=== PATIENT | male | born 1950 | race Caucasian/White ===

== ENCOUNTER 2018-10-24 11:24 | Outpatient (REF) | payer BC, SELFPAY ==
[2018-10-24 20:55] LABS: Hemoglobin A1C 6.7 % (4.5-6.2)
[2018-10-24 20:58] LABS: ALT 42 U/L (12-78); AST 20 U/L (15-37); Albumin 3.6 g/dL (3.4-5.0); Alkaline Phosphatase 79 U/L (46-116); Anion Gap 9.3 mmol/L (3-11); BUN 21 mg/dL (7-18); Bilirubin, Total 0.4 mg/dL (0.2-1.0); CO2 29.7 mmol/L (21.0-32.0); CREATININE 1.26 mg/dL (0.70-1.30); Calcium 8.8 mg/dL (8.5-10.1); Chloride 101 mmol/L (98-107); Estimated GFR 56.74 (mL/min/1.73m2); Glucose 115 mg/dL (70-100); Potassium 4.7 mmol/L (3.5-5.1); Sodium 140 mmol/L (136-145); TSH (W/Ref FT4) 2.79 uIU/mL (0.358-3.74); Total Protein 6.6 g/dL (6.4-8.2)
[2018-10-27 11:13] LABS: PSA, Screening 3.8 ng/ml (0-4.5)
== END 2018-10-24 11:44 ==
LOC: NCHCN 11:24
PROVIDERS: PCP Family Medicine; Visit Provider Family Medicine
DX: Z00.00 Encounter for general adult medical examination without abnormal findings (principal); E11.9 Type 2 diabetes mellitus without complications; E03.9 Hypothyroidism, unspecified; I10 Essential (primary) hypertension; E78.5 Hyperlipidemia, unspecified; Z12.5 Encounter for screening for malignant neoplasm of prostate
CPT/HCPCS: 80053; 84153; 83036; 84443

== ENCOUNTER 2019-10-27 09:42 | Outpatient (REF) | payer BC, SELFPAY ==
[2019-10-27 19:42] LABS: ALT 42 U/L (16-63); AST 24 U/L (15-37); Albumin 3.8 g/dL (3.4-5.0); Alkaline Phosphatase 68 U/L (46-116); Anion Gap 8.1 mmol/L (3-11); BUN 20 mg/dL (7-18); Bilirubin, Total 0.7 mg/dL (0.2-1.0); CO2 29.9 mmol/L (21.0-32.0); CREATININE 1.25 mg/dL (0.70-1.30); Calcium 9.1 mg/dL (8.5-10.1); Chloride 101 mmol/L (98-107); Glucose 129 mg/dL (74-106); Potassium 4.8 mmol/L (3.5-5.1); Sodium 139 mmol/L (136-145); TSH 2.59 uIU/mL (0.36-3.74); Total Protein 6.8 g/dL (6.4-8.2)
[2019-10-27 19:44] LABS: Hemoglobin A1C 6.5 % (3.8-5.6)
== END 2019-10-27 10:02 ==
LOC: NCHCN 09:42
PROVIDERS: PCP Family Medicine; Visit Provider Family Medicine
DX: E11.9 Type 2 diabetes mellitus without complications (principal); E03.9 Hypothyroidism, unspecified
CPT/HCPCS: 80053; 83036; 84443

== ENCOUNTER 2020-10-27 09:01 | Outpatient (REF) | payer BC, MEDICARE, SELFPAY ==
[2020-10-27 16:10] LABS: ALT 39 U/L (16-63); AST 18 U/L (15-37); Albumin 3.9 g/dL (3.4-5.0); Alkaline Phosphatase 74 U/L (46-116); Anion Gap 7.6 mmol/L (3-11); BUN 25 mg/dL (7-18); Bilirubin, Total 0.6 mg/dL (0.2-1.0); CO2 30.4 mmol/L (21.0-32.0); CREATININE 1.3 mg/dL (0.70-1.30); Chloride 103 mmol/L (98-107); Estimated GFR 54.42 (mL/min/1.73m2); Glucose 122 mg/dL (74-106); Potassium 4.9 mmol/L (3.5-5.1); Sodium 141 mmol/L (136-145); TSH (W/Ref FT4) 3.24 uIU/mL (0.36-3.74); Total Protein 6.9 g/dL (6.4-8.2)
[2020-10-27 21:54] LABS: PSA, Screening 5.7 ng/mL (0.0-6.5)
[2020-10-28 15:35] LABS: T4 8.6 ug/mL (4.7-13.3)
== END 2020-10-27 09:02 | disposition home or self-care (01) ==
LOC: NCHCN 09:01
PROVIDERS: PCP Family Medicine; Visit Provider Family Medicine
DX: Z00.00 Encounter for general adult medical examination without abnormal findings (principal); E03.9 Hypothyroidism, unspecified; E11.9 Type 2 diabetes mellitus without complications; I10 Essential (primary) hypertension; E78.5 Hyperlipidemia, unspecified; Z12.5 Encounter for screening for malignant neoplasm of prostate
CPT/HCPCS: 80053; 84153; 84436; 84443

== ENCOUNTER 2021-11-07 15:10 | Outpatient (REF) | payer MEDICARE, BC, SELFPAY ==
[2021-11-07 18:35] LABS: ALT 36 U/L (16-63); AST 19 U/L (15-37); Albumin 3.6 g/dL (3.4-5.0); Alkaline Phosphatase 82 U/L (46-116); Anion Gap 10.3 mmol/L (3-11); BUN 22 mg/dL (7-18); Bilirubin, Total 0.6 mg/dL (0.2-1.0); CO2 27.7 mmol/L (21.0-32.0); CREATININE 1.2 mg/dL (0.70-1.30); Calcium 8.6 mg/dL (8.5-10.1); Calculated LDL 75 mg/dL (<100); Chloride 104 mmol/L (98-107); Cholesterol 142 mg/dL (<200); Estimated GFR 59.51 (mL/min/1.73m2); Glucose 117 mg/dL (74-106); HDL Cholesterol 44 mg/dL (40-60); Potassium 4.7 mmol/L (3.5-5.1); Sodium 142 mmol/L (136-145); TSH (W/Ref FT4) 1.76 uIU/mL (0.36-3.74); Total Protein 6.3 g/dL (6.4-8.2); Triglyceride 117 mg/dL (<150)
[2021-11-07 19:10] LABS: Hemoglobin A1C 6.6 % (<5.7)
[2021-11-08 18:20] LABS: PSA, Screening 6.1 ng/mL (<=6.5)
== END 2021-11-07 15:11 | disposition home or self-care (01) ==
LOC: NCHCN 15:10
PROVIDERS: PCP Family Medicine; Visit Provider Family Medicine
DX: E11.9 Type 2 diabetes mellitus without complications (principal); E03.9 Hypothyroidism, unspecified; I10 Essential (primary) hypertension; E78.5 Hyperlipidemia, unspecified; N40.0 Benign prostatic hyperplasia without lower urinary tract symptoms; Z12.5 Encounter for screening for malignant neoplasm of prostate
CPT/HCPCS: 80053; 80061; 84153; 83036; 84443

== ENCOUNTER 2022-11-08 12:45 | Outpatient (REF) | payer MEDICARE, BC, SELFPAY ==
[2022-11-08 15:27] LABS: Hemoglobin A1C 6.4 % (<5.7)
[2022-11-08 15:55] LABS: ALT 46 U/L (16-63); AST 28 U/L (15-37); Albumin 3.6 g/dL (3.4-5.0); Alkaline Phosphatase 67 U/L (46-116); Anion Gap 6.2 mmol/L (3-11); BUN 21 mg/dL (7-18); Bilirubin, Total 0.5 mg/dL (0.2-1.0); CO2 30.8 mmol/L (21.0-32.0); CREATININE 1.3 mg/dL (0.70-1.30); Calcium 9.1 mg/dL (8.5-10.1); Chloride 104 mmol/L (98-107); Estimated GFR 58.01 (mL/min/1.73m2); Glucose 134 mg/dL (74-106); Potassium 4.6 mmol/L (3.5-5.1); Sodium 141 mmol/L (136-145); Total Protein 6.6 g/dL (6.4-8.2); Vitamin B12 638 pg/mL (193-986)
[2022-11-09 19:26] LABS: PSA, Screening 2.9 ng/mL (<=6.5)
== END 2022-11-08 12:46 | disposition home or self-care (01) ==
LOC: NCHCN 12:45
PROVIDERS: PCP Family Medicine; Visit Provider Family Medicine
DX: I10 Essential (primary) hypertension (principal); E03.9 Hypothyroidism, unspecified; E11.9 Type 2 diabetes mellitus without complications; N40.0 Benign prostatic hyperplasia without lower urinary tract symptoms; Z12.5 Encounter for screening for malignant neoplasm of prostate
CPT/HCPCS: 80053; 84153; 82607; 83036; 84443

== ENCOUNTER → 2023-01-29 02:52 | Outpatient (CLI) | payer MEDICARE, BC, SELFPAY ==
--- NOTE | 2023-01-29 | DI.US_ITS ---
APPROVED REPORT EXAM: Comprehensive 2D, Doppler, and color-flow Echocardiogram Patient Location: Out-Patient Wax Pumper: Diamante Cisneros RDCS (AE) Indications: Murmur Other Information Study Quality: Adequate Conclusion Normal left ventricular wall thickness and chamber size. Ejection fraction is 55%. Wall motion is n ormal Normal right ventricular size and systolic function Both atria are normal in size There are no structural valvular abnormalities Trace mitral and tricuspid regurgitation Ventricular systolic pressure could not be estimated Wall motion Left Ventricle The left ventricle is normal size. The left ventricular systolic function is normal. The left ventric ular ejection fraction is within the normal range. There is normal left ventricular wall thickness. T here is normal LV segmental wall motion. There is no ventricular septal defect visualized. LVEF is 5 5%. Right Ventricle The right ventricle is normal size. The right ventricular systolic function is normal. Atria The left atrium size is normal. The right atrium size is normal. The interatrial septum is intact wi th no evidence for an atrial septal defect. Aortic Valve The aortic valve is normal in structure. Aortic valve is trileaflet. There is no aortic valvular sten osis. No aortic regurgitation is present. Mitral Valve The mitral valve is normal in structure. No evidence of mitral valve stenosis. Trace mitral regurgita tion. Tricuspid Valve The tricuspid valve is normal in structure. There is no tricuspid valve stenosis. Trace tricuspid reg urgitation. Unable to assess PA pressure. Pulmonic Valve The pulmonary valve is normal in structure. There is no pulmonic valvular stenosis. Trace pulmonic re gurgitation. Great Vessels The aortic root is normal in size. The ascending aorta is normal in size. Aortic arch is normal in ca liber. IVC is normal in size and collapses >50% with inspiration. Pericardium There is no pericardial effusion. 2D Dimensions IVSD d PLAX 1.00 cm M: 0.6-1.2 LVPW d PLAX 1.04 cm M: 0.6 - 1.2 LVID d PLAX 4.67 cm M: 4.2 - 5.8 LVDs 3.30 cm M: 2.5 - 4.0 Ao Root d 3.30 cm M: 3.1 - 3.7 Ao Asc Diam d 3.16 cm M: 2.6 - 3.4 LV EF Teichholz 55.5 % FS 28.80 % M-Mode TAPSE 2.90 cm (M/F) >1.7 LV Diastology MV E' medial 0.100 (>0.07 m/s) E/A Ratio 1.0 LV E/e LAT 0.08 (<14) MV E Vmax 0.85 (0.4-1.3 m/s) MV A Vmax 0.85 (0.4-1.3 m/s) Aortic Valve LVOT Vmax 1.05 m/s LVOT Peak Grad 4.4 mmHg LVOT Mean Grad 2.5 mmHg LVOT Diam s 2.05 cm AoV Vmax 1.25 m/s Velocity Ratio 0.84 AoV Peak Grad 6.3 mmHg LVOT SV 90.84 mL AoV Mean Grad 3.7 mmHg AoV Area VTI 2.79 cm2 Mitral Valve MV DT 199 (160-240 msec) MV Vmax TIPS 0.76 m/s MV Mean Grad 0.8 (<2mmHg) MV VTI 0.252 m Pulmonary Valve PV Mean Grad 2.0 mmHg RVOT Peak Gr. 1.18 mmHg RVOT Mean Gr. 0.60 mmHg RVOT VTI 0.117 m RVOT Vmax 0.54 m/s
== END ==
PROVIDERS: PCP Family Medicine; Visit Provider Family Medicine
DX: R01.1 Cardiac murmur, unspecified (principal)
CPT/HCPCS: 93306

== ENCOUNTER 2023-11-05 13:01 | Outpatient (REF) | payer MEDICARE, BC, SELFPAY ==
[2023-11-05 15:35] LABS: HCT 38.8 % (40.0-50.0); HGB 13.2 g/dL (13.5-17.5); MCH 32.9 pg (27.0-33.0); MCV 97 fL (80-95); MPV 9.5 fL (8.0-11.0); Platelet Count 233 10^3/uL (130-400); RBC 4.01 10^6/uL (4.36-5.78); RDW 13.2 % (11.8-14.1); RDW-SD 47.3 fL; WBC 6.14 10^3/uL (4.4-10.8)
[2023-11-05 16:11] LABS: Hemoglobin A1C 6.7 % (<5.7)
[2023-11-05 16:35] LABS: ALT 47 U/L (16-63); AST 34 U/L (15-37); Albumin 3.7 g/dL (3.4-5.0); Alkaline Phosphatase 68 U/L (46-116); Anion Gap 9.6 mmol/L (3-11); BUN 22 mg/dL (7-18); Bilirubin, Total 0.6 mg/dL (0.2-1.0); CO2 27.4 mmol/L (21.0-32.0); CREATININE 1.3 mg/dL (0.70-1.30); Chloride 105 mmol/L (98-107); Estimated GFR 57.65 (mL/min/1.73m2); FREE T4 1.05 ng/dL (0.76-1.46); Glucose 130 mg/dL (74-106); Potassium 4.4 mmol/L (3.5-5.1); Sodium 142 mmol/L (136-145); Total Protein 6.6 g/dL (6.4-8.2)
[2023-11-05 23:16] LABS: PSA, Screening 2.6 ng/mL (<=6.5)
== END 2023-11-05 13:02 | disposition home or self-care (01) ==
LOC: NCHCN 13:01
PROVIDERS: PCP Family Medicine; Visit Provider Family Medicine
DX: E11.9 Type 2 diabetes mellitus without complications (principal); Z00.00 Encounter for general adult medical examination without abnormal findings
CPT/HCPCS: 80053; 84153; 85027; 83036; 84439

== ENCOUNTER 2024-01-09 08:08 | Outpatient (REF) | payer MEDICARE, BC, SELFPAY ==
--- OUTSIDE RECORDS SUMMARY | 2024-01-09 08:10 | XMS_ITS | Referral Summary ---
Author Organization [facility] Address [address] [place] [address] Care Team Providers Care Coagulating Bath Mixer Name Role Phone Sintia Lombardo MD Primary Care Provider [phone] Encounters Date Type Department Care Team Description 11/05/2023 Lab Requisition [facility] Pathology & Laboratory Medicine - [address] [address] Outr Resulting Lab, Provider from Last 3 Months Social History Tobacco Use Types Packs/Day Years Used Date Smoking Tobacco: Never Assessed Sex and Gender Information Value Date Recorded Sex Assigned at Not on file Gender Identity Not on file Sexual Orientation Not on file Plan of Treatment Not on file Procedures Procedure Name Priority Date/Time Associated Diagnosis Comments PSA TOTAL, DIAGNOSTIC Routine 11/05/2023 9:10 EDT from Last 3 Months Results * PSA TOTAL, DIAGNOSTIC (11/05/2023 9:10 EDT) PSA 2.6 <=6.5 ng/mL 11/05/2023 23:11 EDT [facility] Blood VENOUS BLOOD / Unknown 11/05/2023 9:10 EDT 11/05/2023 21:48 EDT Narrative [facility] - 11/05/2023 23:11 EDT NOTE: Serum PSA concentration should not be interpreted as absolute evidence for the presence or absence of malignant disease. Assayed on Siemens ADVIA Centaur XPT using chemiluminescent technology.??Values obtained by using different assay methods cannot be used interchangeably. Provider Outr Resulting Lab CHEMISTRY & BLOOD GAS ORDERABLES [facility] [address] [place] [address] from Last 3 Months Care Teams Coagulating Bath Mixer Relationship Specialty Start Date End Date Sintia Lobmardo MD [address] [place] [id number] PCP - General 12/07/11
--- OUTSIDE RECORDS SUMMARY | 2024-01-09 08:10 | XMS_ITS | Encounter Summary ---
Author Organization [facility] Address [address] [place] [address] Care Team Providers Care Radio Tester Name Role Phone Sintia Lombardo MD Primary Care Provider [phone] Encounter Details Date Type Department Care Team (Late st Contact Info) Description 11/05/2023 Lab Requisition [facility] Pathology & Laboratory Medicine - [facility] [address] [place], [place] [phone] Outr Resulting Lab, Provider Social History Tobacco Use Types Packs/Day Years Used Date Smoking Tobacco: Never Assessed Sex and Gender Information Value Date Recorded Sex Assigned at Not on file Gender Identity Not on file Sexual Orientation Not on file documented as of this encounter Plan of Treatment Not on file documented as of this encounter Procedures Procedure Name Priority Date/Time Associated Diagnosis Comments PSA TOTAL, DIAGNOSTIC Routine 11/05/2023 9:10 EDT documented in this encounter Results * PSA TOTAL, DIAGNOSTIC (11/05/2023 9:10 EDT) PSA 2.6 <=6.5 ng/mL 11/05/2023 23:11 EDT [facility] Blood VENOUS BLOOD / Unknown 11/05/2023 9:10 EDT 11/05/2023 21:48 EDT Narrative [facility] - 11/05/2023 23:11 EDT NOTE: Serum PSA concentration should not be interpreted as absolute evidence for the presence or absence of malignant disease. Assayed on Siemens ADVIA Glassdooraur XPT using chemiluminescent technology.??Values obtained by using different assay methods cannot be used interchangeably. Provider Outr Resulting Lab CHEMISTRY & BLOOD GAS ORDERABLES [facility] [address] [place] [address] documented in this encounter Visit Diagnoses Not on filedocumented in this encounter Care Teams Radio Tester Relationship Specialty Start Date End Date Sintia Lombardo MD [address] [place] [id number] PCP - General 12/07/11 documented as of this encounter
--- OUTSIDE RECORDS SUMMARY | 2024-01-09 08:10 | XMS_ITS | Encounter Summary ---
Author Organization [facility] Address [address] [place] [address] Care Team Providers Care Parachute Officer Name Role Phone Sintia Lombardo MD Primary Care Provider [phone] Encounter Details Date Type Department Care Team (Late st Contact Info) Description 11/09/2022 Lab Requisition [facility] Pathology & Laboratory Medicine - [facility] [address] [place], [place] [id number] Outr Resulting Lab, Provider Social History Tobacco [...] Associated Diagnosis Comments PSA TOTAL, DIAGNOSTIC Routine 11/08/2022 9:20 EDT documented in this encounter Results * PSA TOTAL, DIAGNOSTIC (11/08/2022 9:20 EDT) PSA 2.9 <=6.5 ng/mL 11/09/2022 19:21 EDT [facility] Blood VENOUS BLOOD / Unknown 11/08/2022 9:20 EDT 11/09/2022 18:27 EDT Narrative [facility] - 11/09/2022 19:21 EDT NOTE: Serum PSA concentration should not be interpreted as absolute evidence for the presence or absence of malignant disease. Assayed on Siemens ADVIA ParAccelaur XPT using chemiluminescent technology.??Values obtained by using different assay methods cannot be used interchangeably. Provider Outr Resulting Lab CHEMISTRY & BLOOD GAS ORDERABLES [facility] [address] [place] [address] documented in this encounter Visit Diagnoses Not on filedocumented in this encounter Care Teams Parachute Officer Relationship Specialty Start Date End Date Sintia Lombardo MD [address] [place] [address] PCP - General 12/07/11 documented as of this encounter
--- OUTSIDE RECORDS SUMMARY | 2024-01-09 08:10 | XMS_ITS | Clinical Summary ---
Author Organization [facility] Address [facility] [place] [address] Care Team Providers Care Landscape Horticulture Instructor Name Role Phone Sintia Lombardo MD Primary Care Provider [phone] Allergies No known active allergies Medications Medication Sig Dispensed Refills Start Date End Date Status acyclovir (ZOVIRAX) 200 mg capsule 200mg, PO, Four times daily 08/14/2006 Active atorvastatin (LIPITOR) 10 mg tablet 10mg, PO, QHS 08/14/2006 Active doxazosin (CARDURA) 4 mg tablet 4mg, PO, Once daily 08/14/2006 Active metroNIDAZOLE (METROCREAM) 0.75 % cream 1 Appl(s), Top, Twice daily 08/14/2006 Active metFORMIN (GLUCOPHAGE) 500 mg tablet Take 1,000 mg by mouth 2 times daily (with meals). Active minocycline (MINOCIN;DYNACIN) 100 mg capsule Take 100 mg by mouth 2 times daily. Active levothyroxine (SYNTHROID) 100 mcg tablet Take 100 mcg by mouth daily. Active lisinopril (PRINIVIL;ZESTRIL) 5 mg tablet Take 5 mg by mouth daily. Active aspirin 81 mg EC tablet Take 81 mg by mouth daily. Active multivitamin (THERAGRAN) tablet Take 1 tablet by mouth daily. Active Active Problems Problem Noted Date Diagnosed Date Varicose veins 01/22/2013 DM2 (diabetes mellitus, type 2) 01/22/2013 HLD (hyperlipidemia) 01/22/2013 HTN (hypertension) 01/22/2013 Hypothyroidism 01/22/2013 HSV (herpes simplex virus) infection 01/22/2013 Immunizations Name Administration Dates Next Due Influenza Vaccine, Whole 04/17/2005 Social History Tobacco Use Types Packs/Day Years Used Date Smoking Tobacco: Never Sex and Gender Information Value Date Recorded Sex Assigned at Not on file Gender Identity Not on file Sexual Orientation Not on file Last Filed Vital Signs Vital Sign Reading Time Taken Comments Blood Pressure 156/77 03/09/2013 1:33 PM EDT rig ht arm Pulse 77 03/09/2013 1:32 PM EDT Temperature - - Respiratory Rate - - Oxygen Saturation 100% 03/09/2013 1:32 PM EDT Inhaled Oxygen Concentration - - Weight 95.3 kg (210 lb) 03/09/2013 1:32 PM EDT Height 182.9 cm (6') 03/09/2013 1:32 PM EDT Body Mass Index 28.48 03/09/2013 1:32 PM EDT Plan of Treatment Health Maintenance Due Date Last Done Comments CT Colonography 1950 Colonoscopy 1950 Colorectal Cancer Screening 1950 FIT DNA 1950 FIT 1950 Sigmoidoscopy (10 year) with FIT yearly 1950 Sigmoidoscopy 1950 DM Creatinine yearly 1959 DM Hemoglobin A1c 1959 DM Opthalmology Exam 1959 DM Urine Microalbumin yearly 1959 Hepatitis C Screening 1967 Tdap adult 02/15/1968 Tetanus vaccine 02/15/1968 Zoster vaccine (1 of 2) 1999 Advance Directive 02/15/2004 Pneumoccocal Vaccine: 65+ (1 of 1 - PCV) 2014 Covid-19 Vaccine (1 - season) 2023 Influenza (Flu) vaccine (1 o f 1 - Influenza standard series) 02/23/2024 04/17/2005 Care Teams Landscape Horticulture Instructor Relationship Specialty Start Date End Date Sintia Lombardo MD [facility] [address] [place] [address] [place] [address] PCP - General 05/16/10
--- OUTSIDE RECORDS SUMMARY | 2024-01-09 08:10 | XMS_ITS | Encounter Summary ---
Author Organization [facility] Address [address] [place] [address] Care Team Providers Care Hand Hose Cutter Name Role Phone Unknown, Provider Primary Care Provider Encounter Details Date Type Department Care Team (Late st Contact Info) Description 06/14/2009 Orders Only [facility] Laboratory Services - [facility] [address] [place], [place] [phone] Zulema Lombardo MD [facility] [address] [place] [address] Social History Tobacco Use Types Packs/Day Years Used Date Smoking Tobacco: Never Assessed Sex and Gender Information Value Date Recorded Sex Assigned at Not on file Gender Identity Not on file Sexual Orientation Not on file documented as of this encounter Plan of Treatment Not on file documented as of this encounter Procedures Procedure Name Priority Date/Time Associated Diagnosis Comments SURGICAL PATHOLOGY Routine 06/14/2009 0:00 EST documented in this encounter Results * SURGICAL PATHOLOGY (06/14/2009 0:00 EST) Pathology Report: SURGICAL PATHOLOGY REPORT ? Reports generated via electronic interface contain original data; ? however they are lacking the format of the original report. ? Caution should be taken when reading/interpreti ng unformatted reports. ? Name: ? LEWIS, JACK ? Accession #: ? [id number] ? : ? 1950 (Age: 59) ??M ? Collect Date: ? 06/14/2009 ? Location: ? [facility] ? Receive Date: ? 06/15/2009 ? Provider: ZULEMA READY MD ? Copy to: ? Final Pathologic Diagnosis: ? A. ?Skin of back, posterior, lesion #1, punch biopsy: ? 1. ?Melanocytic nevus, junctional type, with unusual architectural ? features and mild cytologic atypia. ??See microscopic and comment. ? - Melanocytic nevus extends to peripheral edge of biopsy specimen. ? B. ?? Skin of back, posterior, lesion #2, punch biopsy: ? 1. ?? Melanocytic nevus, junctional type, with unusual architectural ? features and mild cytologic ? atypia. ?- Melanocytic nevus does not extend to edges of biopsy specimen in the ? plane of the ? sections examined. ?- Melanocytic nevus measures approximately 0.4 mm to the nearest ? peripheral edge. ? C. ?? Skin of back, posterior, lesion #3, punch biopsy: ? 1. ?? Melanocytic nevus, junctional type, with unusual architectural ? features and mild cytologic ? atypia. ?- Melanocytic nevus does not extend to edges of biopsy specimen in the ? plane of the ?sections examined. ?- Melanocytic nevus measures approximately 0.6 mm to the ? nearest peripheral edge. ? Comment: ? All three biopsies show a junctional melanocytic nevus with mild atypia. In specimens (B) and (C), the nevi appear generally encompassed by the biopsy ? specimens. In specimen (A), the nevus extends to the peripheral edge of the ? biopsy specimen. If this is a smaller biopsy of a large lesion, it may not be ?? circulation sales representative of the lesion as a whole. Clinical correlation is recommended. ?? (Dr. Vasquez)/della ? Microscopic Description: ? (A-C) The epidermis is hyperplastic with elongate and anastomosing rete ? ridges. ??There is a circumscribed proliferation of melanocytes within the ? epidermis that consists of nests and individual cells in a lentiginous pattern. The nests predominate and vary in size, shape, and spacing. ??Some of the nests ?? bridge between rete ridges. ??Although the individual melanocytes are unevenly ?? spaced in some areas, they show no tendency toward confluent growth or upward ?? migration. ??The melanocytes are enlarged and show a mild degree of nuclear size and shape variation. ??There is papillary dermal fibroplasia. ??Deeper levels have been examined on blocks (A) through (C). ??(Dr. Vasquez)/della ? Document reviewed and electronically signed by: ? Marlene Vasquez MD ? Report ??Date: 06/21/2009 17:13 ? By the signature above, the attending physician certifies that he/she has ? personally conducted a gross and/or microscopic examination of the described ? specimens and rendered or confirmed the above diagnosis. ? Specimen(s) Received: ? Posterior back ? Clinical History: ? Atypical skin lesions; per specimen diagram, lesion #1 superior, lesion #2 mid, and lesion #3 inferior ? Gross Description: ? Received in formalin labelled Jack Lewis and skin lesion #1 is an ? ovoid naylor-pink skin punch biopsy measuring 0.5 x 0.3 cm and excised to a depth ?? of 0.3 cm. ??The specimen is bisected and submitted entirely as (A). ? Received in formalin labelled Jack Lewis and skin lesion #2 is a naylor-pink skin punch biopsy measuring 0.6 x 0.3 cm and excised to a depth of 0.4 cm. ? Centrally on the skin surface is a well defined hyperpigmented macule measuring 0.3 x 0.2 cm. ??The specimen is bisected and submitted entirely as (B). ? Received in formalin labelled [place], Jack and skin lesion #3 is a naylor-white skin punch biopsy measuring 0.6 x 0.4 cm and excised to a depth of 0.4 cm. ? Centrally on the skin surface is a brown-black ovoid macule with slightly ? irregular borders. ??The specimen is bisected and submitted entirely as (C). ??(NEFTALI Jamison)/selam ? End of Report ? [facility] 06/14/2009 06/15/2009 8:3 1 EST Zulema Lombardo MD PATHOLOGY ORDERABLES [facility] [address] [place] [address] documented in this encounter Visit Diagnoses Not on filedocumented in this encounter Care Teams Hand Hose Cutter Relationship Specialty Start Date End Date Unknown, Provider, PCP - General 06/15/09 06/19/09 documented as of this encounter
--- OUTSIDE RECORDS SUMMARY | 2024-01-09 08:10 | XMS_ITS | Clinical Summary ---
Author Organization [facility] Address [address] [place] [address] Care Team Providers Care Senior Ui Designer Name Role Phone Sintia Lombardo MD Primary Care Provider [phone] Encounters Date Type Department Care Team Description 11/05/2023 Lab Requisition [facility] Pathology & Laboratory Medicine - [facility] [address] [place] [address] Outr Resulting Lab, Provider from Last 3 Months Social History Tobacco Use Types Packs/Day Years Used Date Smoking Tobacco: Never Assessed Sex and Gender Information Value Date Recorded Sex Assigned at Not on file Gender Identity Not on file Sexual Orientation Not on file Plan of Treatment Health Maintenance Due Date Last Done Comments Hepatitis C Screen 1950 RSV Immunization ( o r 60+ Years) (1 - 1-dose 60+ series) 2009 Fall Risk Screening 2014 COVID-19 Vaccine ( season) 2023 Procedures Procedure Name Priority Date/Time Associated Diagnosis Comments PSA TOTAL, DIAGNOSTIC Routine 11/05/2023 9:10 EDT from Last 3 Months Results * PSA TOTAL, DIAGNOSTIC (11/05/2023 9:10 EDT) PSA 2.6 <=6.5 ng/mL 11/05/2023 23:11 EDT [facility] Blood VENOUS BLOOD / Unknown 11/05/2023 9:10 EDT 11/05/2023 21:48 EDT Narrative [facility] - 11/05/2023 23:11 EDT NOTE: Serum PSA concentration should not be interpreted as absolute evidence for the presence or absence of malignant disease. Assayed on Siemens ADVIA Centaur XPT using chemiluminescent technology.??Values obtained by using different assay methods cannot be used interchangeably. Provider Outr Resulting Lab CHEMISTRY & BLOOD GAS ORDERABLES [facility] [address] [place] [address] from Last 3 Months Care Teams Senior Ui Designer Relationship Specialty Start Date End Date Sintia Lombardo MD [address] [place] [id number] PCP - General 12/07/11
--- OUTSIDE RECORDS SUMMARY | 2024-01-09 08:10 | XMS_ITS | Encounter Summary ---
Author Organization [facility] Address [address] [place] [address] Care Team Providers Care Sharepoint Net Developer Name Role Phone Zulema Lombardo MD Primary Care Provider [phone] Encounter Details Date Type Department Care Team (Late st Contact Info) Description 08/23/[address] [facility] Laboratory Services - [facility] [address] [place], [place] [phone] Laureano Cardenas DO [address] [facility] [address] [place], [place] [id number] Social History Tobacco Use Types Packs/Day Years Used Date Smoking Tobacco: Never Assessed Sex and Gender Information Value Date Recorded Sex Assigned at Not on file Gender Identity Not on file Sexual Orientation Not on file documented as of this encounter Plan of Treatment Not on file documented as of this encounter Procedures Procedure Name Priority Date/Time Associated Diagnosis Comments SURGICAL PATHOLOGY Routine 08/23/2009 0:00 EST documented in this encounter Results * SURGICAL PATHOLOGY (08/23/2009 0:00 EST) Pathology Report: SURGICAL PATHOLOGY REPORT ? Reports generated via electronic interface contain original data; ? however they are lacking the format of the original report. ? Caution should be taken when reading/interpreti ng unformatted reports. ? Name: ? LEWIS, JACK ? Accession #: ? [id number] ? : ? 1950 (Age: 59) ??M ? Collect Date: ? 08/23/2009 ? Location: ? [facility] ? Receive Date: ? 08/23/2009 ? Provider: LAUREANO CARDENAS DO ? Copy to: ZULEMA READY MD ? Final Pathologic Diagnosis: ? Rectum, polypectomy: ? - Tubular adenoma. ? Document reviewed and electronically signed by: ? ABDELMONEM ELHOSSEINY MD ? Report ??Date: 08/25/2009 15:36 ? By the signature above, the attending physician certifies that he/she has ? personally conducted a gross and/or microscopic examination of the described ? specimens and rendered or confirmed the above diagnosis. ? Specimen(s) Received: ? Rectal polyp ? Clinical History: ? Screening; rectal polyp ? Gross Description: ? Received in Sheri's fixative labelled Lewis, Jack and rectal polyp is a 0.7 x 0.5 x 0.4 cm, pink-naylor, pedunculated, polypoid soft tissue. ??The ? resection margin is inked blue, the specimen is bisected and entirely submitted in a single cassette. ??(Sean Gomez)/[facility] ? End of Report ? [facility] 08/23/2009 08/23/2009 16: 46 EST Laureano Cardenas DO PATHOLOGY ORDER RENEE Performing Organization Address City/State/[facility] Co de Phone Number [facility] [address] [place] [address] documented in this encounter Visit Diagnoses Not on filedocumented in this encounter Care Teams Sharepoint Net Developer Relationship Specialty Start Date End Date Zulema Lombardo MD [facility] [address] [place] [address] PCP - General 06/20/09 12/06/11 documented as of this encounter
--- OUTSIDE RECORDS SUMMARY | 2024-01-09 08:10 | XMS_ITS | Encounter Summary ---
Author Organization [facility] Address [address] [place] [address] Care Team Providers Care Grinder Operator Name Role Phone Sintia Lombardo MD Primary Care Provider [phone] Encounter Details Date Type Department Care Team (Late st Contact Info) Description 11/08/2021 Lab Requisition [facility] Pathology & Laboratory Medicine - [facility] [address] [place], [place] [phone] Outr Resulting Lab, Provider Social History Tobacco [...] Associated Diagnosis Comments PSA TOTAL, DIAGNOSTIC Routine 11/07/2021 9:00 EDT documented in this encounter Results * PSA TOTAL, DIAGNOSTIC (11/07/2021 9:00 EDT) PSA 6.1 <=6.5 ng/mL 11/08/2021 18:16 EDT [facility] Blood VENOUS BLOOD / Unknown 11/07/2021 9:00 EDT 11/08/2021 16:50 EDT Narrative [facility] - 11/08/2021 18:16 EDT NOTE: Serum PSA concentration should not be interpreted as absolute evidence for the presence or absence of malignant disease. Assayed on Siemens ADVIA Docinaur XPT using chemiluminescent technology.??Values obtained by using different assay methods cannot be used interchangeably. Provider Outr Resulting Lab CHEMISTRY & BLOOD GAS ORDERABLES [facility] [address] [place] [address] documented in this encounter Visit Diagnoses Not on filedocumented in this encounter Care Teams Grinder Operator Relationship Specialty Start Date End Date Sintia Lombardo MD [address] [place] [address] PCP - General 12/07/11 documented as of this encounter
--- OUTSIDE RECORDS SUMMARY | 2024-01-09 08:10 | XMS_ITS | Encounter Summary ---
Author Organization [facility] Address [facility] [place] [address] Care Team Providers Care Teradata Architect Name Role Phone Sintia Lombardo MD Primary Care Provider [phone] Encounter Details Date Type Department Care Team (Late st Contact Info) Description 01/22/2013 Orders [place] [id number] Yazmin Zhang RN Varicose veins (Primary Dx) Social History Tobacco Use Types Packs/Day Years Used Date Smoking Tobacco: Never Assessed Sex and Gender Information Value Date Recorded Sex Assigned at Not on file Gender Identity Not on file Sexual Orientation Not on file documented as of this encounter Plan of Treatment Not on file documented as of this encounter Results * LE Unilateral Valvular Incomp Study (03/09/2013 12:31 PM EDT) VB Text Report Department: Vascular Surgery Lab Patient: [id number] (JACK LEWIS) CPT Code: 56048 ICD-9: 454.8 Referring Physician: DORON TAYLOR Indication: ??painful RLE varicose veins; ? valvular incompetence ICD9 Diagnosis Code: Right 454.8 Findings: Right ?Reflux?Diameter ??Depth ?? Common Femoral Vein ?Reflux ? Femoral Vein ? Competent ? Popliteal ?Competent ? Posterior Tibial Vein ??Competent ? GSV, Near SFJ ?Reflux ?7.8 ?? 14.2 ?? GSV, Proximal Thigh ?Reflux ?6.9 ?7.6 ?? GSV, Mid Thigh ? Reflux ?3.7 ?6.9 ?? GSV, Distal Thigh ?Reflux ?3.9 ?6.4 ?? GSV, ??Knee ? Reflux ?6.0 ?2.4 ?? GSV Prox Calf ?Reflux ? GSV, Mid Calf ?Reflux ? GSV, Distal Calf ? Competent ? SSV ?Competent ? Interpretation: Right: Superficial venous valvular incompetence of the great saphenous vein and it's tributaries from the groin through the mid calf. No evidence of deep venous valvular incompetence distal to the groin. No evidence of DVT or superficial vein thrombus. Comparison: ??No previous study in our vascular lab database for comparison. Electronically Signed by: AWILDA PALMER on 2013-03-09 02:16:26 PM [facility] VB Text Report End of Report [facility] 03/09/2013 12:3 1 PM EDT Doron Taylor MD VASCULAR ORDERABLES [facility] documented in this encounter Visit Diagnoses Diagnosis Varicose veins- Primary Asymptomatic varicose veins documented in this encounter Care Teams Teradata Architect Relationship Specialty Start Date End Date Sintia Lombardo MD [facility] [address] [place] [address] [place] [address] PCP - General 05/16/10 documented as of this encounter
--- OUTSIDE RECORDS SUMMARY | 2024-01-09 08:10 | XMS_ITS | Encounter Summary ---
Author Organization [facility] Address [facility] [place] [address] Care Team Providers Care Director Of Audiology Name Role Phone Sintia Lombardo MD Primary Care Provider [phone] Encounter Details Date Type Department Care Team (Latest Contact Info) Description 03/09/2013 12:30 PM EDT Ancillary Appointment [place] [phone] Cata Norris RVT Varicose veins Social History Tobacco Use Types Packs/Day Years Used Date Smoking Tobacco: Never Sex and Gender Information Value Date Recorded Sex Assigned at Not on file Gender Identity Not on file Sexual Orientation Not on file documented as of this encounter Plan of Treatment Not on file documented as of this encounter Procedures Procedure Name Priority Date/Time Associated Diagnosis Comments UNLATERAL VALVULAR INCOMP Routine 03/09/2013 12:31 PM EDT Varicose veins documented in this encounter Results * LE Unilateral Valvular Incomp Study (03/09/2013 12:31 PM EDT) VB Text Report Department: Vascular Surgery Lab Patient: [id number] (JACK LEWIS) CPT Code: 93839 ICD-9: 454.8 Referring Physician: DORON TAYLOR Indication: [...] in this encounter Visit Diagnoses Diagnosis Varicose veins Asymptomatic varicose veins documented in this encounter Care Teams Director Of Audiology Relationship Specialty Start Date End Date Sintia Lombardo MD [facility] [address] [place] [address] [place] [address] PCP - General 05/16/10 documented as of this encounter
--- OUTSIDE RECORDS SUMMARY | 2024-01-09 08:10 | XMS_ITS | Encounter Summary ---
Author Organization [facility] Address [address] [place] [address] Care Team Providers Care Slurry Control Tender Name Role Phone Zulema Sumner MD Primary Care Provider [phone] Encounter Details Date Type Department Care Team (Late st Contact Info) Description 12/05/2011 Results Only [facility] [phone] Zulema Sumner MD [address] [place] [address] Social History Tobacco Use Types Packs/Day Years Used Date Smoking Tobacco: Never Assessed Sex and Gender Information Value Date Recorded Sex Assigned at Not on file Gender Identity Not on file Sexual Orientation Not on file documented as of this encounter Plan of Treatment Not on file documented as of this encounter Procedures Procedure Name Priority Date/Time Associated Diagnosis Comments SURGICAL PATHOLOGY Routine 12/05/2011 0:00 EDT documented in this encounter Results * SURGICAL PATHOLOGY (12/05/2011 0:00 EDT) Pathology Report: SURGICAL PATHOLOGY REPORT Reports generated via electronic interface contain original data; however they are lacking the format of the original report. Caution should be taken when reading/interpreti ng unformatted reports. Name: ? JACK LEWIS ? Accession #: ? [id number] ? : ? 1950 (Age: 61) ??M ? Collect Date: ? 12/05/2011 ? Location: ? [facility] ? Receive Date: ? 12/06/2011 ? Provider: ZULEMA SUMNER MD Copy to: ? Final Pathologic Diagnosis: ? Skin of neck, posterior right side, punch biopsy: 1. ?? Melanocytic nevus, compound type, with unusual architectural features and mild cytologic atypia. ? - Nevus does not extend to edges of punch biopsy specimen in the plane of the sections ? examined. ?- Nevus present approximately 0.75 mm from closest peripheral tissue edge. Comment: ? Although the nevus is arising in sun-damaged skin, the melanocytes show no definitive confluent individual cells growth, upward migration, or significant atypia. ??(Dr. Neely)/[facility] Microscopic Description: ? Sections consist of a bisected punch biopsy of skin to the deep reticular dermis. ??The epidermis is mildly hyperplastic. ??There is a central compound melanocytic proliferation. ??The intraepidermal component extends slightly beyond the dermal component. ??The intraepidermal melanocytes are arranged in small nests and as individual cells. ??The individual cells are unevenly spaced but show no tendency toward confluent growth or upward migration. ??The nests are small and consist of 2 ??3 cells at the tips of rete ridges. ??The dermal component consists of nests and cords of small melanocytes that show features maturation with descent. ??The proliferation is associated with heavily pigmented melanophages. ??There is solar elastosis. ??(Dr. Neely)/[facility] Document reviewed and electronically signed by: CALIN NEELY MD Report ??Date: 12/07/2011 12:19 By the signature above, the attending physician certifies that he/she has personally conducted a gross and/or microscopic examination of the described specimens and rendered or confirmed the above diagnosis. Specimen(s) Received: ? Back of neck, R side Clinical History: ? 3.0 mm dark nevus, new and changing; h/o multiple sunburns; R/O melanoma ? Gross Description: ? Received in formalin labelled Lewis, Jack and neck is an ovoid punch biopsy of naylor skin measuring 0.5 x 0.4 cm in diameter and 0.2 cm in thickness. There is a central 0.2 x 0.1 cm irregular, brown-black macule. ??The specimen is bisected and entirely submitted in a single cassette. ??(Tabitha Domingo)/della End of Report [facility] 12/05/2011 12/06/2011 8:1 3 EDT Zulema Sumner MD PATHOLOGY ORDERABLES [facility] [address] [place] [address] documented in this encounter Visit Diagnoses Not on filedocumented in this encounter Care Teams Slurry Control Tender Relationship Specialty Start Date End Date Zulema Sumner MD [facility] [address] [place] [address] PCP - General 06/20/09 12/06/11 documented as of this encounter
--- OUTSIDE RECORDS SUMMARY | 2024-01-09 08:10 | XMS_ITS | Encounter Summary ---
Author Organization [facility] Address [facility] [place] [address] Care Team Providers Care Cash Register Repairer Name Role Phone Sintia Lombardo MD Primary Care Provider [phone] Reason for Visit * Reason Comments Varicose Veins RLE Encounter Details Date Type Department Care Team (Late st Contact Info) Description 03/09/2013 1:00 PM EDT Office [place] [phone] Garcia Mcdaniel MD [facility] [place] [address] Varicose veins (Primary Dx) Discharge Disposition: Home Social History Tobacco Use Types Packs/Day Years Used Date Smoking Tobacco: Never Sex and Gender Information Value Date Recorded Sex Assigned at Not on file Gender Identity Not on file Sexual Orientation Not on file documented as of this encounter Last Filed Vital Signs Vital Sign Reading [...] Mass Index 28.48 03/09/2013 1:32 PM EDT documented in this encounter Progress Notes * Garcia Mcdaniel MD - 03/09/2013 2:01 PM EDT OUTPATIENT VASCULAR SURGERY CONSULTATION Reason for Visit: Right lateral thigh pain and varicosities History of Present Illness: Mr Delarosa is a 63 yo gentleman with a very long (years) history of bilateral varicose veins and an approximate 6-mo history of right thigh pain. States the pain is intermittent and fleeting, lasting only a couple seconds. Not associated with any particular activity. Denies thigh or calf pain with ambulation. States his varicosities have not been painful in the past and he wonders whether this is related to his varicosities or perhaps not. 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 He wears compression stockings and since he started these a few years ago has noted his swelling is resolved Atherosclerotic Risk Factors: (y) DM (y) HTN (y) Hyperlipidemia (n) Tobacco Other Past Medical History/Risk Factors: (n) Previous [place] (n) Angina (n) CHF (n) Arrythmia (n) COPD Past Medical History Diagnosis Date ??? Varicose veins 01/22/2013 ??? DM2 (diabetes mellitus, type 2) 01/22/2013 ??? HLD (hyperlipidemia) 01/22/2013 ??? HTN (hypertension) 01/22/2013 ??? Hypothyroidism 01/22/2013 ??? 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 Moderate varicosities bilaterally. Relatively large right lateral thigh varicosity in region of thigh pain. Blue/choi discoloration of skinon feet Vascular Exam: R L Carotid 2/2 bruit () 2/2 bruit () Radial 2/2 2/2 Femoral 2/2 2/2 Popliteal 2/2 2/2 DP 2/2 2/2 PT 2/2 2/2 Labs: None Studies: Right Reflux? Diameter Depth Common Femoral Vein Reflux Femoral Vein Competent Popliteal Competent Posterior Tibial Vein Competent GSV, Near SFJ Reflux 7.8 14.2 GSV, Proximal Thigh Reflux 6.9 7.6 GSV, Mid Thigh Reflux 3.7 6.9 GSV, Distal Thigh Reflux 3.9 6.4 GSV, Knee Reflux 6.0 2.4 GSV Prox Calf Reflux GSV, Mid Calf Reflux GSV, Distal Calf Competent SSV Competent Assessment and Plan: Right thigh pain and prominent bilateral varicosities with superficial incompetence. No PAD with critical limb ischemia or claudication. I have explained the etiology of varicoseveins and chronic venous insufficiency (valve incompetence and venous hypertension). I have explained that these conditions can be bothersome, they are not dangerous and the main reason for intervention is quality of life and disability from pain. It further, is not clear whether the thigh pain is actually related to varicose veins or not. It is possible and I have discussed phlebectomy with GSV stripping. He would like to hold off, and may consider it over his summer break. I do not believe his leg pain is the result of any serious (life or limb threatening) vascular conditions. He is reassured for now and I have advised he continue to wear his compression stocking and follow-up with us PRN documented in this encounter Plan of Treatment Not on file documented as of this encounter Visit Diagnoses Diagnosis Varicose veins- Primary Asymptomatic varicose veins documented in this encounter Care Teams Cash Register Repairer Relationship Specialty Start Date End Date Sintia Lombardo MD [facility] [address] [place] [address] [place] [address] PCP - General 11/23/10 documented as of this encounter
--- OUTSIDE RECORDS SUMMARY | 2024-01-09 08:10 | XMS_ITS | Encounter Summary ---
Author Organization [facility] Address [address] [place] [address] Care Team Providers Care Gas Meter Prover Name Role Phone Sintia Lombardo MD Primary Care Provider [phone] Encounter Details Date Type Department Care Team (Late st Contact Info) Description 10/27/2020 Lab Requisition [facility] Pathology & Laboratory Medicine - [facility] [address], [place] [id number] Outr Resulting Lab, Provider Social History Tobacco [...] Associated Diagnosis Comments PSA TOTAL, DIAGNOSTIC Routine 10/27/2020 9:15 EDT documented in this encounter Results * PSA TOTAL, DIAGNOSTIC (10/27/2020 9:15 EDT) PSA 5.7 0.0 - 6.5 ng/mL 10/27/2020 21:48 EDT [facility] Blood VENOUS BLOOD / Unknown 10/27/2020 9:15 EDT 10/27/2020 20:41 EDT Narrative [facility] - 10/27/2020 21:48 EDT NOTE: Serum PSA concentration should not be interpreted as absolute evidence for the presence or absence of malignant disease. Assayed on Siemens ADVIA Spavistaaur XPT using chemiluminescent technology.??Values obtained by using different assay methods cannot be used interchangeably. Provider Outr Resulting Lab CHEMISTRY & BLOOD GAS ORDERABLES [facility] [address] [place] [address] documented in this encounter Visit Diagnoses Not on filedocumented in this encounter Care Teams Gas Meter Prover Relationship Specialty Start Date End Date Sintia Lombardo MD [address] [place] [address] PCP - General 12/07/11 documented as of this encounter
[2024-01-09 17:20] LABS: HCT 39.2 % (40.0-50.0); HGB 13.4 g/dL (13.5-17.5); MCHC 34.2 % (32.0-36.0); MCV 97 fL (80-95); Platelet Count 274 10^3/uL (130-400); RBC 4.06 10^6/uL (4.36-5.78); RDW 13.2 % (11.8-14.1); RDW-SD 46.8 fL; WBC 6.16 10^3/uL (4.4-10.8)
[2024-01-09 17:29] LABS: Iron 77 ug/dL (65-175)
[2024-01-09 17:55] LABS: Ferritin 98 ng/mL (26-388); Vitamin B12 793 pg/mL (193-986)
[2024-01-09 18:08] LABS: Folate > 20.0 ng/mL (8.6-20.0)
== END 2024-01-09 08:09 | disposition home or self-care (01) ==
LOC: NCHCN 08:08
PROVIDERS: PCP Family Medicine; Visit Provider Family Medicine
DX: Z00.00 Encounter for general adult medical examination without abnormal findings (principal)
CPT/HCPCS: 85027; 82607; 82728; 82746; 83540

== ENCOUNTER → 2024-03-26 11:30 | Outpatient (BNVA) | payer MEDICARE, BC, SELFPAY | PROVIDERS: PCP Family Medicine; Referring Provider Family Medicine; Visit Provider Physical Therapy Assistant | DX: Z12.11 Encounter for screening for malignant neoplasm of colon (principal); Z86.0101 Personal history of adenomatous and serrated colon polyps ==

== ENCOUNTER 2024-04-13 07:45 | Day surgery (SDC) | payer MEDICARE, BC, SELFPAY ==
--- NOTE | 2024-04-12 10:10 | W.PM.DSUDISC ---
Date of service: 04/13/24 Time of Service: 10:38 Discharge Plan Disposition Patient Disposition: Home Condition: Good Discharge Details Reason For Visit: screening colonoscopy Attending Provider: Garcia Machado Primary Care Provider: Felecia Craven V Home Meds and New Rx's Prescriptions: Continued aspirin 81 mg tablet,delayed release (DR/EC) 81 mg PO DAILY clobetasol 0.05 % ointment 1 applic topical DAILY doxazosin 2 mg tablet 2 mg PO QHS finasteride 5 mg tablet 5 mg PO HS levothyroxine 112 mcg capsule 112 mcg PO DAILY lisinopril 5 mg tablet 5 mg PO DAILY metformin 500 mg tablet 500 mg PO DAILY Rx Instructions: take 1 tablet by mouth every morning and 2 tablets in the evening minocycline 100 mg capsule 100 mg PO Q12H valacyclovir 500 mg tablet 500 mg PO BID Discontinued bisacodyl [Dulcolax (bisacodyl)] 5 mg tablet,delayed release (DR/EC) 5 mg PO ONCE Qty: 4 0RF Rx Instructions: Take per colonoscopy instructions provided by ordering providers office polyethylene glycol 3350 17 gram/dose powder 17 g PO ONCE Qty: 238 0RF Rx Instructions: Take per colonoscopy instructions provided by ordering providers office No Action atorvastatin 10 mg tablet Discharge Instructions Instructions: Colon polyps, Diverticulosis Additional Instructions: Jack, we were able to complete your colonoscopy today without any issues. I did find and removed 2 small polyps. This will be sent off for testing. Those results usually take about a week or 2. Once we have those, the office will be in touch with any other recommendations. If you have any questions in the meantime, please do not hesitate to ask. 1. If tolerated, consume a soft, low fiber diet for 1-2 days. 2[address] Do not drive, drink alcohol, operate machinery, make critical decisions, or do activities that require coordination or balance for 24 hours. 3. Because air was put into your colon during the procedure, expelling air from your rectum (passing gas or farting) is normal. 4. You may not have a bowel movement for 1-3 days because of the colonoscopy prep. This is normal. 5. Go directly to the emergency room if you notice any of the following: Develop chills (warm to touch), or if you have a thermometer and your temperature is above 101 Difficulty breathing or difficultly swallowing Persistent vomiting Severe abdominal pain, other than gas cramps Severe chest pain Black, tarry stools Any bleeding ? exceeding one tablespoon 6. Call your physician if the site where your intravenous was started becomes red, swollen, painful, and warm to touch. 7. Your physician has reviewed your pre-procedure medications. Please continue to take those medications as previously ordered. You will be given specific information/education regarding any changes to your medications before leaving. Activity:: Activity as Tolerated Diet:: As Tolerated Discharge Orders Discharge Orders: Discharge Order (Routine); Ordered 04/12/24 Ordered By: Garcia Machado DS: Diagnosis Discharge Diagnosis (1) Encounter for screening colonoscopy: Status: Acute Asessment and Plan: Follow-up on polypectomy
--- NOTE | 2024-04-12 10:12 | W.COLOREPORT ---
Date of service: 04/13/24 Time of Service: 10:41 Colonoscopy Report Date of procedure: 04/13/24 Pre-op diagnosis general: screening colonoscopy Post-op diagnosis procedure note: other (Diverticulosis, colon polyp) Procedure: Colonoscopy with polypectomy Surgeon: Garcia Machado Anesthesia Type: General:No Airway Estimated blood loss (mL): 5 Complications: None Disposition: same day Indications: Jack is a 74 year old manwith a history of tubular adenoma who needs his next screening colonoscopy Prep: Miralax/Dulcolax Procedure Start Time: 10:09 Procedure End Time: : Retraction Time: 11 Findings: Sigmoid diverticulosis, 0.25 cm polyps at 20 cm x 2 Procedure Description: After the induction of anesthesia, and with the patient in left lateral decubitus position, I began by performing an external anorectal exam.? Perineum and skin were normal, as was the anal verge.? There was no evidence of external hemorrhoids.? Next, I performed a digital rectal exam.? I did not appreciate any abnormal findings.? Next, I advanced a colonoscope into the rectal vault.? I performed retroflexion.? This appeared normal.? Using insufflation, I then advanced the colonoscope beyond the rectal folds and into the sigmoid colon before advancing towards the cecum.? There is sigmoid diverticulosis.? The scope was noted to be in the cecum by identification of the ileocecal valve and appendiceal orifice.? I then began withdrawing the colonoscope using repeated irrigation as necessary for full evaluation of the colonic mucosa. ?Around 20 cm from the anal fold verge were 2 polyps, just a few centimeters away from 1 another. Each of these was less than 0.25 cm. Each of these was flat. I removed both of polyps with cold forceps polypectomy. They were sent as a single specimen. There is minimal bleeding from the polypectomy sites. Once the scope was withdrawn to the level of the rectum, great care was taken to examine portions of the rectal folds.? Finally, the scope was withdrawn and the patient was brought to the same-day surgery recovery unit as the anesthetic wore off. ?The findings and instructions were shared with the patient prior to discharge. [place] Bowel Prep [place] Bowel Prep Right Colon: 3 Left Colon: 3 Transverse Colon: 3 Total Score: 9
[2024-04-13 08:50] VITALS: BP 173/86; PULSE 68; RESP 16; TEMP 36.4; O2SAT 100
--- NOTE | 2024-04-13 08:56 | W.ANESPRE ---
General Info Date of Service Date Performed: 04/13/24 Height: 6 ft Weight: 91.4 kg Body Mass Index (BMI): 27.3 Surgical Procedure: Operation Date: 04/13/24 09:50 Proposed Procedure Side Surgeon lor Machado MD Meds Allergies and Home Medications Allergies Allergy/AdvReac Type Severity Reaction Status Date / Time doxycycline Allergy Unknown other Verified 04/13/24 08:40 Home Medication ?Medication ?Instructions ?Recorded aspirin 81 mg tablet,delayed 81 mg PO DAILY 02/17/24 release clobetasol 0.05 % topical ointment 1 applic topical DAILY 02/17/24 doxazosin 2 mg tablet 2 mg PO QHS 02/17/24 finasteride 5 mg tablet 5 mg PO HS 02/17/24 levothyroxine 112 mcg capsule 112 mcg PO DAILY 02/17/24 lisinopril 5 mg tablet 5 mg PO DAILY 02/17/24 metformin 500 mg tablet 500 mg PO DAILY 02/17/24 minocycline 100 mg capsule 100 mg PO Q12H 02/17/24 valacyclovir 500 mg tablet 500 mg PO BID 02/17/24 atorvastatin 10 mg tablet mg 04/13/24 Current Visit Medications: Current Medications Generic Name Dose Route Start Last Admin Trade Name Freq PRN Reason Stop Dose Admin Ringer's Solution 1,000 mls @ 80 mls/hr 04/13/24 06:00 IV 04/13/24 23:59 INFUSION WILMER IV Miscellaneous Supplies 1 each 04/13/24 06:00 Iv Access IV 04/13/24 23:59 DIRECTED WILMER Ondansetron HCl 4 mg 04/12/24 10:13 Ondansetron 4 Mg/2 Ml Vial IVP 05/12/24 10:12 Q4H PRN PRN Nausea / Vomiting Sodium Chloride 0 ml 04/13/24 06:00 Normal Saline Flush 10 Ml Syr IV 04/13/24 23:59 PRN PRN Sodium Chloride 0 ml 04/13/24 06:00 Normal Saline 10 Ml Vial IJ 04/13/24 23:59 DIRECTED PRN Sterile Water 0 ml 04/13/24 06:00 Water,Injection,Sterile 10 Ml Vial IJ 04/13/24 23:59 DIRECTED PRN PFSH Active Problems Active Problems: Problem Status Onset Code Encounter for screening colonoscopy Acute Z12.11 Medical History Medical History Retained nonmagnetic intraocular foreign body Heart murmur Eczema Actinic keratitis Type 2 diabetes mellitus without complication Herpesvirus infection Hyperlipidemia HTN (hypertension) Rosacea Hypothyroidism DM (diabetes mellitus screen) BPH (benign prostatic hyperplasia) Surgical History Surgical History History of colonoscopy Tobacco Smoking/Tobacco Use Status: Never Alcohol Alcohol Intake: current Alcohol intake frequency: a few times a week Alcohol type: beer Substance Use Substance use: Never Substance use type: does not use Vital Signs and Lab Results Vital Signs Most Recent Vital Signs in EMR: Most Recent Vital Signs Temp Pulse Resp BP Pulse Ox 36.4 C L 68 16 173/86 H 100 04/13/24 08:50 04/13/24 08:50 04/13/24 08:50 04/13/24 08:50 04/13/24 08:50 Lab Results Blood Type / Crossmatch: No Data to Display Complete Blood Count: No Data to Display Complete Metabolic Panel: No Data to Display Liver Function Panel: No Data to Display Coagulation Panel: No Data to Display Cardiac Panel: No Data to Display Arterial Blood Gas: No Data to Display Venous Blood Gas: No Data to Display Pancreas Panel: No Data to Display Thyroid Panel: No Data to Display Infectious Disease: No Data to Display Blood Cultures: No Data to Display Toxicology Panel: No Data to Display Imaging and Studies Imaging and Studies Study information below may be from another EMR and interpreted by another provider. Please see original notes in EMR for more complete details. Echocardiogram Summary: Patient Name: aJck Delarosa Unit #: [id number] Loc: Ordering Provider: Felecia Craven M.D. Status: [facility] Primary Care Provider: Felecia Craven M.D. Date of Exam: 01/29/23 Sex: M Admission Date: 01/29/23 : 1950 Age: 72 APPROVED REPORT EXAM: Comprehensive 2D, Doppler, and color-flow Echocardiogram Patient Location: Out-Patient [employer] Accountant: Diamante Cisneros RDCS (AE) Indications: Murmur Other Information Study Quality: Adequate Conclusion Normal left ventricular wall thickness and chamber size. Ejection fraction is 55%. Wall motion is normal Normal right ventricular size and systolic function Both atria are normal in size There are no structural valvular abnormalities Trace mitral and tricuspid regurgitation Ventricular systolic pressure could not be estimated Wall motion Left Ventricle The left ventricle is normal size. The left ventricular systolic function is normal. The left ventricular ejection fraction is within the normal range. There is normal left ventricular wall thickness. There is normal LV segmental wall motion. There is no ventricular septal defect visualized. LVEF is 55%. Right Ventricle The right ventricle is normal size. The right ventricular systolic function is normal. Atria The left atrium size is normal. The right atrium size is normal. The interatrial septum is intact with no evidence for an atrial septal defect. Aortic Valve The aortic valve is normal in structure. Aortic valve is trileaflet. There is no aortic valvular stenosis. No aortic regurgitation is present. Mitral Valve The mitral valve is normal in structure. No evidence of mitral valve stenosis. Trace mitral regurgitation. Tricuspid Valve The tricuspid valve is normal in structure. There is no tricuspid valve stenosis. Trace tricuspid regurgitation. Unable to assess PA pressure. Pulmonic Valve The pulmonary valve is normal in structure. There is no pulmonic valvular stenosis. Trace pulmonic regurgitation. Great Vessels The aortic root is normal in size. The ascending aorta is normal in size. Aortic arch is normal in caliber. IVC is normal in size and collapses >50% with inspiration. Pericardium There is no pericardial effusion. 2D Dimensions IVSD d PLAX 1.00 cm M: 0.6-1.2 LVPW d PLAX 1.04 cm M: 0.6 - 1.2 LVID d PLAX 4.67 cm M: 4.2 - 5.8 LVDs 3.30 cm M: 2.5 - 4.0 Ao Root d 3.30 cm M: 3.1 - 3.7 Ao Asc Diam d 3.16 cm M: 2.6 - 3.4 LV EF Teichholz 55.5 % FS28.80 % M-Mode TAPSE 2.90 cm (M/F) >1.7 LV Diastology MV E' medial0.100 (>0.07 m/s)E/A Ratio 1.0 LV E/e LAT0.08 (<14)MV E Vmax 0.85 (0.4-1.3 m/s) MV A Vmax 0.85 (0.4-1.3 m/s) Aortic Valve LVOT Vmax 1.05 m/s LVOT Peak Grad 4.4 mmHg LVOT Mean Grad 2.5 mmHg LVOT Diam s 2.05 cm AoV Vmax1.25 m/s Velocity Ratio 0.84 AoV Peak Grad6.3 mmHg LVOT SV 90.84 mL AoV Mean Grad3.7 mmHg AoV Area VTI2.79 cm2 Mitral Valve MV DT 199 (160-240 msec) MV Vmax TIPS 0.76 m/s MV Mean Grad 0.8 (<2mmHg) MV VTI 0.252 m Pulmonary Valve PV Mean Grad 2.0 mmHgRVOT Peak Gr.1.18 mmHg RVOT Mean Gr.0.60 mmHg RVOT VTI0.117 m RVOT Vmax 0.54 m/s Ordered By: Felecia Craven M.D. CC: Dictated By: Sintia Romero M.D. 01/29/23 0906 <Electronically signed by Sintia Romero M.D. in OV> 01/29/23 0950 Transcribed By: Sintia Romero MD This is privileged, confidential information intended only for the provider named. Any use or distribution by any person other than this provider is strictly prohibited. If you receive this report in error, please notify us immediately at [phone] and return the original report to us at the address above. Thank-you. Anesthesia Assessment and Plan Anesthesia History Personal History: No History of Anesthesia Complications Family History: Other Exercise Tolerance Exercise Tolerance: Metabolic Equivalents>4 Pertinent Negatives Pertinent Negatives: No Symptoms of GERD, No Major Pulmonary Symptoms or Complaints and No History of CVA/TIA Cardiac & Pulmonary Exam Cardiac Exam: Normal S1/S2 Heart Sounds Pulmonary Exam: Clear Bilateral Breath Sounds Implantable Cardiac Device Does patient have a Pacemaker or an ICD?: No Airway Exam Known Difficult Airway: No Mallampati Class: 2 Mouth Opening: Normal (> 3cm) Thyromental Distance: Greater than 3 cm Neck Range of Motion: Full ROM Neck Circumference: Normal Teeth Condition: Normal Dentition ASA Classification ASA Score: ASA 2 Emergency Case?: No NPO Status NPO Status: NPO Clears >2 hours, Solids >8 hours Anesthesia Plan Resuscitation Status: Full Code Anesthesia Technique: General Anesthesia Airway Planned: Natural Airway Monitors Used: Standard Monitors
[2024-04-13] MEDS: Lactated Ringers 1,000 ML 80 ML IV (09:21)
[2024-04-13 09:49] VITALS: BMI 27.3
--- NOTE | 2024-04-13 10:26 | BOWEL_PTH ---
PATIENT: Jack Delarosa LOC: [facility] U#:[id number] AGE/SX: 74/M ROOM: RE04/13/[address]: Garcia Machado MD : 1950 BED: DIS: 04/13/2024 SPEC #: [id number] RECD: 04/13/24 12:54 STATUS: ANAMARIA REQ #: [id number] LUCRETIA: 04/13/24 10:[address]: Garcia Machado DEPT: Surgical Specimen RECD BY: Margot Taveras ENTERED: 04/13/24 12:55 SP TYPE: Bowel OTHR DR: Felecia Craven V Tissues: 1 - BIOPSY BOWEL Procedures: GROSS AND MICRO LEVEL 4 Comments: [id number]
[2024-04-13 10:39] VITALS: BP 149/80; PULSE 68; RESP 18; TEMP 36.3; O2SAT 100
--- NOTE | 2024-04-13 11:09 | W.ANESPOSTOP ---
Postoperative Evaluation Date, Time and Location Date Performed: 04/13/24 Time Performed: 11:09 Patient Location: Day Surgery Unit Vital Signs Most Recent Imported Vital Signs: Most Recent Vital Signs Temp Pulse Resp BP Pulse Ox 36.3 C L 68 18 149/80 H 100 04/13/24 10:39 04/13/24 10:39 04/13/24 10:39 04/13/24 10:39 04/13/24 10:39 Pain Score Most Recent Pain Score: Most Recent Pain Score Pain Level 0 04/13/24 10:39 Assessment Mental Status: Awake (Alert & Oriented to Patient Baseline) Airway and Respiratory Function: Patent airway with normal (patient baseline) respiratory exam Cardiovascular Function: Hemodynamically Stable Hydration Status: Adequately Hydrated Nausea & Vomiting: No Nausea or Vomiting Pain: Pt. Denies Any Pain Peripheral Nerve Block: Patient did not receive a nerve block
[2024-04-13 11:10] VITALS: BP 186/85; PULSE 69; RESP 18; TEMP 36.3; O2SAT 100
== END 2024-04-13 11:30 | disposition home or self-care (01) ==
LOC: SUR 07:46
PROVIDERS: PCP Family Medicine; Visit Provider Surgery
PROC: 0DJD8ZZ Inspection of Lower Intestinal Tract, Via Natural or Artificial Opening Endoscopic (ICD-10-PCS; CPT 45378; principal; 2024-04-13 09:45)
DX: Z12.11 Encounter for screening for malignant neoplasm of colon (principal); D12.5 Benign neoplasm of sigmoid colon; K57.30 Diverticulosis of large intestine without perforation or abscess without bleeding
CPT/HCPCS: 45380; 88305; J2704

== ENCOUNTER 2024-12-15 16:32 | Outpatient (REF) | payer MEDICARE, BC, SELFPAY ==
[2024-12-15 16:43] LABS: HCT 40.7 % (40.0-50.0); HGB 13.8 g/dL (13.5-17.5); MCH 32.2 pg (27.0-33.0); MCHC 33.9 % (32.0-36.0); MCV 95 fL (80-95); Platelet Count 215 10^3/uL (130-400); RBC 4.28 10^6/uL (4.36-5.78); RDW 13.2 % (11.8-14.1); RDW-SD 46.8 fL; WBC 6.06 10^3/uL (4.4-10.8)
[2024-12-15 16:56] LABS: INR 1.2 (0.9-1.1); Prothrombin Time 11.5 sec (9.1-11.1)
[2024-12-15 17:10] LABS: Hemoglobin A1C 6.4 % (<5.7)
[2024-12-15 17:46] LABS: ALT 32 U/L (16-63); AST 22 U/L (15-37); Albumin 3.6 g/dL (3.4-5.0); Alkaline Phosphatase 79 U/L (46-116); Anion Gap 6.9 mmol/L (3-11); BUN 21 mg/dL (7-18); Bilirubin, Total 0.7 mg/dL (0.2-1.0); CO2 29.1 mmol/L (21.0-32.0); CREATININE 1.4 mg/dL (0.70-1.30); Calcium 8.9 mg/dL (8.5-10.1); Chloride 104 mmol/L (98-107); Estimated GFR 52.41 (mL/min/1.73m2); Glucose 126 mg/dL (74-106); Potassium 4.7 mmol/L (3.5-5.1); Sodium 140 mmol/L (136-145); TSH 1.85 uIU/mL (0.36-3.74); Total Protein 6.3 g/dL (6.4-8.2)
== END 2024-12-15 16:33 | disposition home or self-care (01) ==
LOC: NCHCN 16:32
PROVIDERS: PCP Family Medicine; Visit Provider Family Medicine
DX: E11.9 Type 2 diabetes mellitus without complications (principal); R23.3 Spontaneous ecchymoses; N40.1 Benign prostatic hyperplasia with lower urinary tract symptoms; I10 Essential (primary) hypertension; E03.9 Hypothyroidism, unspecified
CPT/HCPCS: 80053; 85027; 83036; 84153; 84443; 85610

== ENCOUNTER 2025-05-07 11:43 | Outpatient (REF) | payer MEDICARE, BC, SELFPAY ==
[2025-05-07 15:55] LABS: Hemoglobin A1C 6.3 % (<5.7)
[2025-05-07 18:42] LABS: Anion Gap 11.3 mmol/L (3-11); BUN 25 mg/dL (9-23); CO2 27.7 mmol/L (20.0-31.0); Calcium 9.0 mg/dL (8.3-10.6); Chloride 103 mmol/L (98-107); Glucose 125 mg/dL (74-106); Potassium 4.7 mmol/L (3.5-5.1); Sodium 142 mmol/L (136-145)
== END 2025-05-07 11:44 | disposition home or self-care (01) ==
LOC: NCHCN 11:43
PROVIDERS: PCP Family Medicine; Visit Provider Family Medicine
DX: E11.9 Type 2 diabetes mellitus without complications (principal); I10 Essential (primary) hypertension
CPT/HCPCS: 80048; 83036